=== PATIENT | male | born 1960 | race Caucasian/White ===

== ENCOUNTER 2017-01-31 04:44 | Inpatient (IN) | payer BC ==
--- OUTSIDE RECORDS SUMMARY | 2017-01-31 04:47 | XMS | Continuity of Care Document ---
:1960 Author Organization [facility] Care Team Providers Name Role Phone EDUARDO ROSS Admitting Physician CARROL WALTON Attending Physician Hospital Admission Diagnosis No data in the System Social History Element Description Code Description Smoking Status Code Start Date End Date System Smoking Status [id number] Never smoker SNOMED-CT Problems Code Code System Problem Name Start Date End Date Status oblique femur fracture 01/14/2017 Active oblique femur fracture 01/14/2017 Active 01192819 SNOMED-CT Hypertensive disorder Unknown Active Medications SNOMED CT Description [id number] Drug Treatment Unknown Allergies Code Code System Allergy Type Reaction Severity Start Date End Date Status Substance RXNorm No Known Drug Drug allergy Unknown 01/14/2017 Active Allergies RXNorm No Known Drug Drug allergy Unknown 01/14/2017 Active Allergies Results Laboratory Results Order: BMP BASIC METABOLIC PANEL LOINC Test Result Flag Range Unit Date 1Glucose 106 75-110 mg/dl 01/14/2017 17:55 1BUN 34 H 6.0-17.0 mg/dl 01/14/2017 17:55 1Creatinine 1.6 H 0.4-1.2 mg/dl 01/14/2017 17:55 1Sodium 133 L 137-145 mmol/l 01/14/2017 17:55 1Potassium 4.5 3.5-5.0 mmol/l 01/14/2017 17:55 1Chloride 98 98-107 mmol/l 01/14/2017 17:55 1CO2 25 22-30 mmol/l 01/14/2017 17:55 1Calcium 9.3 8.4-10.2 mg/dl 01/14/2017 17:55 1EGFR if 57 mL/min/1.73m^2 01/14/2017 17:55 1EGFR if Non- 47 mL/min/1.73m^2 01/14/2017 17:55 [place] Note: Estimated Glomerular Filtration Rate (eGFR) Reference Intervals Decision Points for 18 years and older and average body mass: >=60 Does not exclude kidney disease. 30 - 59 Suggests moderate chronic kidney disease and indicates the need for further investigation including assessment of proteinuria and cardiovascular factors. < 30 Usually indicates a need for referral for assessment and management of chronic kidney failure. Performing Lab Footnotes:[address] [place] [address] - [id number] - [address] - MD: DIRECTOR KRYSTAL HURTADO___ ___ Order: CBC PLATELET AUTO DIFF LOINC Test Result Flag Range Unit Date 89787-5 1Leukocytes^^corrected for 9.66 4.80-10.80 10^3/ul 01/14/2017 17 :55 nucleated erythrocytes:NCnc:Pt:Bld:Qn:A utomated count 789-8 1Erythrocytes:NCnc:Pt:Bld:Qn: 3.25 L 4.70-6.10 10^6/ul 01/14/2017 17:55 Automated count 718-7 1Hemoglobin:MCnc:Pt:Bld:Qn 10 L 14.0-18.0 gm/dl 01/14/2017 17:55 4544-3 1Hematocrit:VFr:Pt:Bld:Qn:Aut 31 L 42.0-50.0 % 01/14/2017 17:55 omated count 787-2 1Erythrocyte mean corpuscular 95.4 H 80.0-94.0 fL 01/14/2017 17:55 volume:EntVol:Pt:RBC:Qn:Autom ated count 785-6 1Erythrocyte mean corpuscular 30.8 27.0-31.0 pg 01/14/2017 17:55 hemoglobin:EntMass:Pt:RBC:Qn: Automated count 786-4 1Erythrocyte mean corpuscular 32.3 L 33.0-37.0 gm/dl 01/14/2017 17: 55 hemoglobin concentration:MCnc:Pt:RBC:Qn: Automated count 788-0 1Erythrocyte distribution 14 11.5-14.5 % 01/14/2017 17:55 width:Ratio:Pt:RBC:Qn:Automat ed count 777-3 1Platelets:NCnc:Pt:Bld:Qn:Aut 344 130-400 10^3/ul 01/14/2017 17:55 omated count 17120-3 1Platelet mean 9.3 A 7.4-10.4 fL 01/14/2017 17:55 volume:EntVol:Pt:Bld:Qn:Autom ated count 770-8 1Neutrophils/100 70.9 42.0-75.0 % 01/14/2017 17:55 leukocytes:NFr:Pt:Bld:Qn:Auto mated count 736-9 1Lymphocytes/100 13.3 13.0-42.0 % 01/14/2017 17:55 leukocytes:NFr:Pt:Bld:Qn:Auto mated count 5905-5 1Monocytes/100 10.8 4.0-14.0 % 01/14/2017 17:55 leukocytes:NFr:Pt:Bld:Qn:Auto mated count 713-8 1Eosinophils/100 2.7 1.0-3.0 % 01/14/2017 17:55 leukocytes:NFr:Pt:Bld:Qn:Auto mated count 706-2 1Basophils/100 0.7 L 1.0-3.0 % 01/14/2017 17:55 leukocytes:NFr:Pt:Bld:Qn:Auto mated count 1IG% 1.6 H 0.0-0.4 % 01/14/2017 17:55 Performing Lab Footnotes:[address] [place] [address] [id number] - [facility] [address] [place] [address] BLAISE Christine MD: DIRECTOR KRYSTAL HURTADO___ ___ Order: PROTIME PT INR LOINC Test Result Flag Range Unit Date 1Protime 10.6 9.0-11.8 seconds 01/14/2017 17:55 6301-6 1Coagulation tissue factor 1 0.9-1.1 01/14/2017 17:55 induced.INR:RelTime:Pt:PPP:Qn:Co ag Note: INR results are intended ONLY to monitor Oral Anticoagulant therapy in stablized patients. The INR Therapeutic Range is 2.0 - 3.0 Patients with a mechanical heart, the INR Range is 2.5 - 3.5 Performing Lab Footnotes:[address] [place], [place] [id number] [place] [address] BLAISE Christine MD: DIRECTOR KRYSTAL HURTADO___ ___ Order: PTT PARTIAL THROMBOPLASTIN TM LOINC Test Result Flag Range Unit Date 1aPTT 26.6 25.3-35.7 seconds 01/14/2017 17:55 Performing Lab Footnotes:[address] [place], [place] [id number] - [address] [place] [address] BLAISE Christine MD: DIRECTOR KRYSTAL HURTADO___ ___ Radiology Results Order: [id number] XR HIP 2-3 VIEWs W AP PELVISExam Completion Date:01/14/2017 14:51Procedure: XR HIP 2-3 VIEWs W AP PELVIS Exam Date: January 14, 2017 Ordering Provider: CARROL Aranainical Indication: TRAUMA: Multiple Traumatic InjuriesComparison: NoneFindings: Right hip arthroplasty that is intact.Oblique fracture of the right femur originating at the femoral anchor componentand extending superiorly.Diffuse soft tissue swelling.Impression: Oblique fractureof the right femur originating at the femoralanchor component and extending superiorly.This final report was electronically signed by Dr Phu Rodriguez MD 2016 3:55 PMDictated By: PATTIE RODRIGUEZate: 01/14/2017 16:01 Vital Signs Vitals Value Date Body Temperature 98 F 01/14/2017 Respiratory Rate 18 01/14/2017 O2% BldC Oximetry 100 01/14/2017 BP Systolic 121 mmHg 01/14/2017 BP Diastolic 66 mmHg 01/14/2017 Height 72 in 01/14/2017 Weight Measured 220 lbs 01/14/2017 BSA (Body Surface Area) 2.92874 01/14/2017 BMI (Body Mass Index) 30.1 01/14/2017 Plan of Care No data in the system Procedures Code Code System Procedure Name Target Site Date of Procedure XR HIP 2-3 VIEWs W AP PELVIS 01/14/2017 16:01 RIGHT HIP SX 12/2016 LOW BACK SX Unknown RIGHT WRIST SX Unknown Encounters No data in the system Immunizations No data in the system Functional Status Code Functional/Cognitive Condition Code System Date Status 782935167 Orientated SNOMED-CT 01/14/2017 Active 922642872 Orientated SNOMED-CT 01/14/2017 Active 603383598 Orientated SNOMED-CT 01/14/2017 Active 435906874 Orientated SNOMED-CT 01/14/2017 Active 815684811 Mentally alert SNOMED-CT 01/14/2017 Active 705644046 Ability to perform activities of everyday SNOMED-CT 01/14/2017 Active life (observable entity) 142931739 Oriented to person SNOMED-CT 01/14/2017 Active Hospital Discharge Instructions No data in the system
--- OUTSIDE RECORDS SUMMARY | 2017-01-31 04:47 | XMS | Continuity of Care Document ---
:1960 Author Organization [facility] Care Team Providers Name Role Phone EDUARDO ROSS Admitting Physician CARROL WALTON Attending Physician Hospital Admission Diagnosis Code Admission Diagnosis Date [id number] Injury of hip region Social History Element Description Code Description Smoking Status Code Start Date End Date System Smoking Status 049631796 Never smoker SNOMED-CT Problems Code Code System Problem Name Start Date End Date Status oblique femur fracture 01/14/2017 Active oblique femur fracture 01/14/2017 Active 13554146 SNOMED-CT Hypertensive disorder Unknown Active Medications SNOMED CT Description 145471977 Drug Treatment Unknown Allergies Code Code System [...] 1EGFR if Non- 47 mL/min/1.73m^2 01/14/2017 17:55 Taiwanese Note: Estimated Glomerular Filtration Rate (eGFR) Reference [...] management of chronic kidney failure. Performing Lab Footnotes:[address] [place] [address] - [id number] - [address] - MD: DIRECTOR KRYSTAL HURTADO___ ___ Order: CBC PLATELET AUTO DIFF LOINC Test Result Flag Range Unit Date 82658-7 1Leukocytes^^corrected for 9.66 4.80-10.80 10^3/ul 01/14/2017 17 [...] 344 130-400 10^3/ul 01/14/2017 17:55 omated count 17149-3 1Platelet mean 9.3 A 7.4-10.4 fL 01/14/2017 [...] H 0.0-0.4 % 01/14/2017 17:55 Performing Lab Footnotes:[address] [place] [address] - [id number] - [facility] [address] - : DIRECTOR KRYSTAL HURTADO___ ___ Order: PROTIME PT [...] Range is 2.5 - 3.5 Performing Lab Footnotes:[address] [place], [place] [id number] [place] [address] BLAISE Christine MD: DIRECTOR KRYSTAL HURTADO___ ___ Order: PTT PARTIAL THROMBOPLASTIN TM LOINC Test Result Flag Range Unit Date 1aPTT 26.6 25.3-35.7 seconds 01/14/2017 17:55 Performing Lab Footnotes:[address] [place], [place] [id number] [place] [address] BLAISE Christine MD: DIRECTOR KRYSTAL HURTADO___ ___ Radiology Results Order: [id number] XR HIP 2-3 VIEWs W AP PELVISExam [...] 220 lbs 01/14/2017 BSA (Body Surface Area) 2.04541 01/14/2017 BMI (Body Mass Index) 30.1 01/14/2017 Plan of Care No data in the system Procedures Code Code System Procedure Name Target Site Date of Procedure XR HIP 2-3 VIEWs W AP PELVIS 01/14/2017 16:01 RIGHT HIP SX 12/2016 LOW BACK SX Unknown RIGHT WRIST SX Unknown Encounters Date Code Diagnosis Status (ICD10) - [id number] DSPL OBL FX SHFT RT FEM INIT GOLD FX Active Immunizations No data in the system Functional Status Code Functional/Cognitive Condition Code System Date Status 696750949 Orientated SNOMED-CT 01/14/2017 Active 925791736 Orientated SNOMED-CT 01/14/2017 Active 461739370 Orientated SNOMED-CT 01/14/2017 Active 730257736 Orientated SNOMED-CT 01/14/2017 Active 453447877 Mentally alert SNOMED-CT 01/14/2017 Active 620584535 Ability to perform activities of everyday SNOMED-CT 01/14/2017 Active life (observable entity) 825667409 Oriented to person SNOMED-CT 01/14/2017 Active Hospital Discharge Instructions No data in the system
[2017-01-31 05:57] LABS: #Lymphocytes 0.5 thou/uL (1.20-3.40); #Monocytes 0.8 thou/uL (0.11-0.59); #Neutrophils 5.2 thou/uL (1.40-6.50); %Basophils 0.6 % (0.0-1.0); %Eosinophils 0.6 % (0.0-10.0); %Monocytes 11.4 % (0.0-10.0); Hematocrit 23.1 % (42.0-52.0); Mean Platelet Volume 6.5 fL (7.4-10.4); Red Blood Cell (RBC) Count 2.36 mill/uL (4.70-6.10); White Blood Cell (WBC) Count 6.6 thou/uL (4.8-10.8)
[2017-01-31 06:02] LABS: PTT 38.3 SEC (22.9-36.1); Prothrombin Time 17.3 SEC (12.0-14.7)
[2017-01-31] MEDS ORDERED: Naloxone HCl 0.4 mg/ml Vial ONE (06:12)
[2017-01-31 06:16] LABS: Lactic Acid - Sepsis 2.8 mmol/L (0.5-2.2)
[2017-01-31 06:24] LABS: ALT (SGPT) 24 U/L (8-55); AST (SGOT) 44 U/L (5-34); Alkaline Phosphatase 344 U/L (40-150); Anion Gap 20 mmol/L (10-20); BUN (Urea Nitrogen) 42 mg/dL (8.4-25.7); Bilirubin, Total 0.4 mg/dL (0.2-1.2); CK (CPK) 702 U/L (30-200); Calc. Creatinine Clearance 0 mL/min (70-130); Calcium 8.4 mg/dL (7.8-10.44); Carbon Dioxide 18 mmol/L (22-29); Chloride 99 mmol/L (98-107); Estimated GFR-MDRD 37; Protein, Total 6.1 g/dL (6.0-8.3)
[2017-01-31 06:25] LABS: Troponin I Less than 0.010 ng/mL (< 0.028)
[2017-01-31 06:55] LABS: Acetaminophen Less than 6.0 mcg/mL (10.0-30.0); Salicylate Less than 8.0 mg/dL (15.0-30.0)
[2017-01-31] MEDS ORDERED: Sodium Bicarb 50 MEQ/50 ML Abboject 8.4% SYRINGE ONE ×2 (06:55→06:57)
[2017-01-31 07:45] LABS: Magnesium 2.3 mg/dL (1.6-2.6); Phosphorus 4.8 mg/dL (2.3-4.7)
--- NOTE | 2017-01-31 08:01 | ULT ---
PRELIMINARY REPORT/[facility]/EMERGENCY AFTER HOURS PROCEDURE: EXAM: US Duplex Bilateral Lower Extremity Veins CLINICAL HISTORY: 57 years old, male; Signs and symptoms; Edema, localized; Lower extremity, bilateral; Patient HX: Ed aure x 5-6 months TECHNIQUE: Real-time ultrasound scan of the veins of the bilateral lower extremities with color Doppler flow, s pectral waveform analysis and compression. COMPARISON: No relevant prior studies available. FINDINGS: Right deep veins: Unremarkable. No DVT in the right common femoral, femoral, proximal deep femoral o r popliteal veins. The veins demonstrate normal color flow, are normally compressible, with normal p hasic flow and/or augmentation response. Right superficial veins: Unremarkable. No thrombus in the visualized right great saphenous vein. Left deep veins: Unremarkable. No DVT in the left common femoral, femoral, proximal deep femoral or popliteal veins. The veins demonstrate normal color flow, are normally compressible, with normal pha sic flow and/or augmentation response. Left superficial veins: Unremarkable. No thrombus in the visualized left great saphenous vein. Soft tissues: Soft tissue edema. No popliteal cyst. IMPRESSION: No sonographic evidence for deep venous thrombosis in the lower extremities Thank you for allowing us to participate in the care of your patient. Dictated and Authenticated by: Tam Elmore MD 01/31/2017 6:26 AM Central Time ([place] \T\ [place]) FINAL REPORT VENOUS ULTRASOUND FINDINGS/IMPRESSION: I agree with the above provided preliminary interpretation. No evidence of DVT. POS: [facility]
--- NOTE | 2017-01-31 08:20 | CT ---
CT HEAD NONCONTRAST: History: Altered mental status. FINDINGS: No comparison. There is no evidence of acute intracranial hemorrhage or infarct. Chronic ischemic sm all vessel disease is apparent within the periventricular white matter of each cerebral hemisphere. There is no mass effect or shift of midline structures. Visualized paranasal sinuses remain well aer ated. IMPRESSION: No acute intracranial abnormalities are demonstrated on noncontrast CT head. POS: [facility]
--- NOTE | 2017-01-31 08:21 | RAD ---
CHEST ONE VIEW: History: Altered mental status. Dyspnea. FINDINGS: No comparison. The cardiac silhouette is magnified by projection. Pulmonary vasculature is unremarka ble. Mediastinum is midline. There is no lobar consolidation or evidence of pneumothorax. IMPRESSION: No active cardiopulmonary abnormalities are demonstrated. POS: [facility]
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
--- NOTE | 2017-01-31 08:26 | RAD ---
TWO VIEWS RIGHT HIP: Date: 01-31-17 History: Right hip replacement approximately 1 month ago. Patient has had difficulty walking since s urgery and reports constant pain since procedure. FINDINGS: There is a right total hip prosthesis in place. There are cerclage wires about the proximal right fe mur. No hardware complication is seen. There is no fracture or dislocation. There is increased densi ty seen lateral to the right hip which may be related to heterotopic ossification. Partial visualiza tion of post-surgical changes lower lumbar spine. No other findings. IMPRESSION: Post-surgical change related to right total hip prosthesis. No acute osseous abnormality is identifi ed. POS: [facility]
[2017-01-31] MEDS ORDERED: Loratadine 10 MG TAB PO PRN (09:05)
[2017-01-31] MEDS ORDERED: cloNIDine HCl 0.1 MG TAB PO PRN (09:05)
[2017-01-31] MEDS ORDERED: Ondansetron HCl/PF 4 MG/2 ML Vial IVP PRN (09:05)
[2017-01-31] MEDS ORDERED: Famotidine 20 MG TAB PO SCH ×2 (09:05→09:45)
[2017-01-31] MEDS ORDERED: Nitroglycerin 0.4 MG TAB (25 Tab Bottle) PO PRN (09:05)
[2017-01-31] MEDS ORDERED: Acetaminophen 325 MG TAB PO PRN (09:05)
[2017-01-31] MEDS ORDERED: Diabetic Tussin 200 MG/10 ML UDCUP PO PRN (09:05)
[2017-01-31] MEDS ORDERED: Calcium Carbonate 500 MG ChewTAB PO PRN (09:05)
[2017-01-31] MEDS ORDERED: Lorazepam 1 MG TAB PO PRN (09:05)
[2017-01-31] MEDS ORDERED: Eucerin (Mineral Oil/Petrolatum,White) 30 gm Jar TOP PRN (09:05)
[2017-01-31] MEDS ORDERED: Ondansetron ODT 4 MG TAB PO PRN (09:05)
[2017-01-31] MEDS ORDERED: Senokot 8.6 MG TAB PO PRN (09:05)
[2017-01-31] MEDS ORDERED: Sodium Bicarbonate 50 MEQ in Dextrose 5 %-0.45 % NaCl 1,000 ML IV SCH ×2 (09:05→17:47)
[2017-01-31 14:56] LABS: Anion Gap 17 mmol/L (10-20); BUN (Urea Nitrogen) 37 mg/dL (8.4-25.7); Calc. Creatinine Clearance 90 mL/min (70-130); Calcium 8.6 mg/dL (7.8-10.44); Carbon Dioxide 22 mmol/L (22-29); Chloride 103 mmol/L (98-107); Estimated GFR-MDRD 49
[2017-01-31 15:03] LABS: Troponin I 0.015 ng/mL (< 0.028)
[2017-01-31] MEDS: HYDROcodone/Acetaminophen 5/325 mg Tablet PO PRN ×3 (16:16→23:38)
[2017-01-31] MEDS: Folic Acid 1 MG TAB PO SCH (16:16)
[2017-01-31] MEDS: cefTRIAXone\\ROCEPHIN 1 GM in Sodium Chloride 0.9% 100 ML IVPB SCH (16:17)
[2017-01-31] MEDS: Metoprolol Tartrate 25 MG TAB PO SCH ×2 (16:17→20:33)
[2017-01-31] MEDS: Multivit, Therapeutic 1 TAB PO SCH (16:17)
--- NOTE | 2017-01-31 17:54 | CON ---
NEPHROLOGY CONSULTATION DATE OF CONSULTATION: 01/31/2017 CONSULTING PHYSICIAN: Dr. Bianchi. REASON FOR CONSULTATION: Acute kidney injury, hyperkalemia. REASON FOR ADMISSION: Altered mental status. HISTORY OF PRESENT ILLNESS: A 57-year-old male who was brought to the hospital with altered mentati on, history of chronic alcoholism, hypertension, chronic pain and also on chronic narcotics. The patient is feeling much better this afternoon and was eating his dinner. No fever or chills. N o nausea or vomiting. He wants to go home. He does follow with Dr. Desai at [facility]. PAST MEDICAL HISTORY: Positive for CKD stage 3, chronic alcoholism, hypertension, chronic pain synd [place]mira, renal cyst. PAST SURGICAL HISTORY: Recent hip replacement, avascular necrosis, back surgery, wrist surgery. HOME MEDICATIONS: Eliquis, vitamin D, Lasix 20, gabapentin 300 mg p.o. daily, [place], lisinopril, Ro baxin, Toprol-XL, multivitamins, Senna and Ocuvite. ALLERGIES: No known drug allergies. SOCIAL HISTORY: No smoking, alcohol or illicit drug abuse. FAMILY HISTORY: Positive for hypertension. REVIEW OF SYSTEMS: The following complete review of systems was negative, unless otherwise mentione d in the HPI or below: CONSTITUTIONAL: Weight loss or gain, ability to conduct usual activities. SKIN: Rash, itching. EYES: Double vision, pain. ENT/MOUTH: Nose bleeding, neck stiffness, pain, tenderness. CARDIOVASCULAR: Palpitations, dyspnea on exertion, orthopnea. RESPIRATORY: Shortness of breath, wheezing, cough, hemoptysis, fever or night sweats. GASTROINTESTINAL: Poor appetite, abdominal pain, heartburn, nausea, vomiting, constipation, or diar violetta. GENITOURINARY: Urgency, frequency, dysuria, nocturia. MUSCULOSKELETAL: Pain, swelling. NEUROLOGIC/PSYCHIATRIC: Anxiety, depression. ALLERGY/IMMUNOLOGIC: Skin rash, bleeding tendency. PHYSICAL EXAMINATION: GENERAL: This is a well-built male in no apparent distress. VITAL SIGNS: Temperature 98.6, pulse 105, respiratory rate 18, blood pressure 139/69. HEENT: Atraumatic, normocephalic. Oral mucosa is moist. NECK: Supple, no masses. CARDIOVASCULAR: S1 and S2 heard. Rate and rhythm regular. RESPIRATORY: Clear. GASTROINTESTINAL: Abdomen is soft. MUSCULOSKELETAL: No tenderness, no edema. DERMATOLOGIC: No skin rash. NEUROLOGIC: Alert and awake. PSYCHIATRIC: Mood and affect normal. LABORATORY AND X-RAY FINDINGS: Hemoglobin is 7.3. Potassium is 4.8, BUN is 37, creatinine is 1.7 t o 1.4. Potassium was initially 6.5. ASSESSMENT AND PLAN: 1. Acute kidney injury, much better. Agree with hydration. 2. Acidosis, better with IV fluids. 3. Hyperkalemia. Limit potassium in the diet and hold BIANCA inhibitor. 4. Anemia, rule out any bleed. 5. Edema. We will check urine protein to creatinine ratio. 6. Hypertension, stable. Plan is to check urine protein to creatinine ratio. Continue IV fluids as tolerated and we will fol low. Thank you for the consultation.
[2017-01-31 19:31] LABS: Bilirubin Negative (Negative); Blood, Urine Moderate (Negative); Glucose, Urine (Dipstick) Negative (Negative); Ketone, Urine Trace mg/dL (Negative); Nitrite Negative (Negative); Protein, Urine (Dipstick) Trace mg/dL (Neg-Trace); Urobilinogen 0.2 mg/dL (0.2-1.0)
[2017-01-31 19:33] LABS: Bacteria/HPF None Seen HPF (None Seen); Hyaline Casts/LPF 0-3 HYALINE CAST LPF (0-3 Hyaline); Squamous Epithelial None Seen HPF (0-3); WBC/HPF 0-3 HPF (0-3)
[2017-01-31] MEDS: Doxycycline 100 MG CAP PO SCH (20:33)
[2017-01-31] MEDS: Gabapentin 300 MG CAP PO SCH (20:33)
[2017-01-31] MEDS: Famotidine 20 MG TAB PO SCH (20:34)
[2017-01-31] MEDS: Apixaban 5 MG TAB PO SCH ×2 (20:37→21:00)
[2017-02-01] MEDS: HYDROcodone/Acetaminophen 5/325 mg Tablet PO PRN ×2 (03:29→08:36)
[2017-02-01 05:35] LABS: #Eosinphils 0.3 thou/uL (0.0-0.7); #Lymphocytes 0.8 thou/uL (1.20-3.40); #Monocytes 0.7 thou/uL (0.11-0.59); #Neutrophils 5.2 thou/uL (1.40-6.50); %Basophils 0.2 % (0.0-1.0); %Eosinophils 4.3 % (0.0-10.0); %Lymphocytes 11.7 % (21.0-51.0); Hematocrit 25.6 % (42.0-52.0); Mean Platelet Volume 6.6 fL (7.4-10.4); Red Blood Cell (RBC) Count 2.57 mill/uL (4.70-6.10); White Blood Cell (WBC) Count 7.1 thou/uL (4.8-10.8)
[2017-02-01 05:59] LABS: ALT (SGPT) 41 U/L (8-55); AST (SGOT) 82 U/L (5-34); Alkaline Phosphatase 350 U/L (40-150); Anion Gap 16 mmol/L (10-20); BUN (Urea Nitrogen) 24 mg/dL (8.4-25.7); Bilirubin, Total 0.2 mg/dL (0.2-1.2); Calc. Creatinine Clearance 115 mL/min (70-130); Calcium 8.7 mg/dL (7.8-10.44); Carbon Dioxide 23 mmol/L (22-29); Chloride 105 mmol/L (98-107); Estimated GFR-MDRD 66; Globulin 3.2 g/dL (2.4-3.5); Protein, Total 6.2 g/dL (6.0-8.3)
[2017-02-01] MEDS: Gabapentin 300 MG CAP PO SCH (08:33)
[2017-02-01] MEDS: Doxycycline 100 MG CAP PO SCH (08:33)
[2017-02-01] MEDS: Folic Acid 1 MG TAB PO SCH (08:34)
[2017-02-01] MEDS: Multivit, Therapeutic 1 TAB PO SCH (08:34)
[2017-02-01] MEDS: Famotidine 20 MG TAB PO SCH (08:34)
[2017-02-01] MEDS: Apixaban 5 MG TAB PO SCH (08:34)
[2017-02-01] MEDS: Metoprolol Tartrate 25 MG TAB PO SCH (08:34)
[2017-02-01] MEDS: cefTRIAXone\\ROCEPHIN 1 GM in Sodium Chloride 0.9% 100 ML IVPB SCH (08:35)
[2017-02-01 11:32] VITALS: BP 130/69; TEMP 99.4
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
[2017-02-01] MEDS ORDERED: Famotidine 20 MG TAB PER TUBE SCH (14:30)
[2017-02-01] MEDS ORDERED: Losartan Potassium 25 MG TAB PER TUBE SCH (14:30)
[2017-02-01] MEDS ORDERED: Aspirin 325 MG TAB PER TUBE SCH (14:30)
[2017-02-01] MEDS ORDERED: Metoprolol Tartrate 25 MG TAB PER TUBE SCH (14:30)
--- NOTE | 2017-02-01 20:15 | PRG ---
DATE OF SERVICE: 02/01/2017 SUBJECTIVE: Patient was seen and examined at bedside and overnight events noted. Patient denies an y shortness of breath or chest pain or palpitation. No history of nausea or vomiting or diarrhea or fever or chills or cramps. OBJECTIVE: GENERAL: This is a well-built male, in no apparent distress. VITAL SIGNS: Temperature 99.4, pulse 103, respiratory rate 16, blood pressure 130/69. HEENT: Atraumatic, normocephalic, oral mucosa is moist. NECK: Supple. CARDIOVASCULAR: S1, S2 heard, rate and rhythm regular. RESPIRATORY: Clear to auscultation. GASTROINTESTINAL: Abdomen is soft. MUSCULOSKELETAL: No tenderness, no edema. DERMATOLOGIC: No skin rash. NEUROLOGIC: Alert and awake and oriented x3, no focal neurologic deficits. Moving all the extremit ies. PSYCHIATRIC: Mood and affect normal. LABORATORY DATA: Potassium 4.2, BUN is 24, creatinine is 1.1. ASSESSMENT AND PLAN: 1. Acute kidney injury, much better. Agree with IV hydration. 2. Hyperkalemia, better. Limit potassium. 3. Edema. 4. Proteinuria, minimal. 5. Hypertension, stable. Okay to discharge home. Follow up in the clinic in 1-2 weeks.
== END 2017-02-01 14:36 | disposition home or self-care (01) | DRG 896 ==
LOC: ERS 04:44 → 2SE 07:46
PROVIDERS: ADMIT Internal Medicine; ATTEND Internal Medicine
DX: F10.251 Alcohol dependence with alcohol-induced psychotic disorder with hallucinations (principal); G92 Toxic encephalopathy; E87.2 Acidosis; N17.9 Acute kidney failure, unspecified; N18.3 Chronic kidney disease, stage 3 (moderate); E44.1 Mild protein-calorie malnutrition; D62 Acute posthemorrhagic anemia; E87.5 Hyperkalemia; E87.1 Hypo-osmolality and hyponatremia; I12.9 Hypertensive chronic kidney disease with stage 1 through stage 4 chronic kidney disease, or unspecified chronic kidney disease; G89.4 Chronic pain syndrome; Z79.891 Long term (current) use of opiate analgesic; Z96.641 Presence of right artificial hip joint; Z79.01 Long term (current) use of anticoagulants; Z87.891 Personal history of nicotine dependence; Y90.0 Blood alcohol level of less than 20 mg/100 ml; Z68.34 Body mass index [BMI] 34.0-34.9, adult; D63.1 Anemia in chronic kidney disease; T39.1X5A Adverse effect of 4-Aminophenol derivatives, initial encounter; Y92.019 Unspecified place in single-family (private) house as the place of occurrence of the external cause
CPT/HCPCS: 36415; 70450; 71010; 80053; 80307; 81001; 82553; 82570; 82607; 82746; 83605; 83690; 83735; 83880; 84100; 84156; 84443; 84484; 85025; 85610; 85730; 86038; 86140; 86850; 86900; 86901; 87040; 87086; 93005; 93306; 93970; 94760; 96361; 96374; 96375; G8978-GP-CK; G8979-GP-CI; G8987-GO-CL; G8988-GO-CJ; J0696; J2310; J7042; J7050

== ENCOUNTER → 2017-04-27 | Day surgery (SDC) | payer OTHER ==
[2017-04-26 10:45] VITALS: BMI 29.1
[~2017-04-27] MED LIST: FLU VACC QS2017-18 36 mo. & older 0.5 ML SYRINGE IM ONE; Iopamidol-M 200 41% 20 ML VIAL ONE
--- NOTE | 2017-04-27 09:18 | RAD ---
LUMBAR MYELOGRAM: INDICATIONS: Radiculopathy. TECHNIQUE: Informed consent was obtained. Pre-procedure acoustic engineer images were performed for guiding purposes. The patient was placed prone on the fluoroscopic table. The site overlying the left L2-L3 interlaminar s pace was marked. The site was prepped and draped in the usual sterile fashion. Buffered 1% Lidocain e as administered to the overlying subcutaneous tissues. Under fluoroscopic guidance, a 22 gauge spi nal needle was guided down into the thecal sac. There was spontaneous return of normal appearing CSF . Following this, 12 mL of Isovue 200 in solution was administered. There was visualization of the nerve roots within the thecal sac, with opacification of the intrathecal space. The inner stylet was placed and the needle was removed. The site was then cleansed and bandaged. The patient tolerated the procedure without difficulty. Total fluoroscopic time was 0.5 minutes. Total exposure was 618.4 mGy per m2. FINDINGS: The pre-procedure acoustic engineer images demonstrate five lumbar type vertebrae. There are interspinous spacin g devices seen at L3-L4 and at L4-L5. There is multilevel disk degenerative disease. There is multi level facet osteoarthritic change. IMPRESSION: Successful lumbar myelogram. POS: JOYCE
--- NOTE | 2017-04-27 09:54 | CT ---
CT LUMBAR MYELOGRAM: INDICATIONS History of lumbar radiculopathy. TECHNIQUE: Multiple CT images were obtained of the lumbar spine following the intrathecal administration of Isov ue 200 in solution. Please see the lumbar myelogram for details concerning the injection technique. FINDINGS: The majority of the contrast is intrathecal. Portions of the contrast appear dispersed along the per iphery of the thecal sac, likely within an epidural location. There is good opacification of the the rajinder sac. There is post surgical change, consistent with a left-sided hemilaminotomy at L5-S1. There are inter spinous spacing devices at L3-L4 and at L4-L5. There are mild vascular calcifications involving the abdominal aorta. At the L5-S1 level, There is a broad-based disk bulge. There is mild facet joint hypertrophy. The c onstellation of findings induces mild bilateral neural foraminal narrowing. No appreciable central c anal narrowing is evident. At L4-L5, there is vacuum disk phenomenon within the intervertebral disk space, likely related to raúl e ongoing disk instability. Beam scattered artifact from the patient's interspinous pacing device sl ightly limits detail at this level. There is a broad-based bulge. There is facet hypertrophy at thi s level, inducing at least mild bilateral neural foraminal narrowing. At L3-L4, there is a broad-based disk osteophyte complex with facet hypertrophy and ligamentum flavum hypertrophy inducing at least mild central canal narrowing. The broad-based bulge and facet hypertr ophy induces mild bilateral neural foraminal narrowing. At L2-L3, there is a broad-based bulge with facet hypertrophy and ligamentum flavum hypertrophy induc ing mild central canal narrowing. There is mild bilateral neural foraminal narrowing. At L1-L2, there is no appreciable central canal or neural foraminal narrowing demonstrated. At T12-L1, there is no appreciable central canal or neural foraminal narrowing present. IMPRESSION: 1. Mild to moderate spondylosis of the lumbar spine. Mild bilateral neural foraminal narrowing from L2-L3 to L5-S1. 2. Mild central canal narrowing is seen at L2-L3 and at L3-L4. 3. Postoperative changes of the lumbar spine. POS: JOYCE
[2017-04-27 11:46] VITALS: TEMP 98
== END ==
LOC: RAD 06:39
PROVIDERS: ATTEND Neurological Surgery
PROC: B01B1ZZ Fluoroscopy of Spinal Cord using Low Osmolar Contrast (ICD-10-PCS; principal; 2017-04-27)
DX: M54.16 Radiculopathy, lumbar region (principal); I10 Essential (primary) hypertension; E78.2 Mixed hyperlipidemia; M10.9 Gout, unspecified; Z79.01 Long term (current) use of anticoagulants; Z79.899 Other long term (current) drug therapy; Z88.8 Allergy status to other drugs, medicaments and biological substances; Z98.890 Other specified postprocedural states; Z98.818 Other dental procedure status; Z87.891 Personal history of nicotine dependence; Z85.828 Personal history of other malignant neoplasm of skin
CPT/HCPCS: 62304; 72132

== ENCOUNTER 2020-09-01 18:02 | Inpatient (IN) | payer BC, MEDICARE ==
[~2020-09-01 18:02] MED LIST changes: -FLU VACC QS2017-18 36 mo. & older 0.5 ML SYRINGE IM ONE; +Iopamidol-370 76% 500 ML 1 ML ONE; -Iopamidol-M 200 41% 20 ML VIAL ONE
[2020-09-01] MEDS ORDERED: Sodium Chloride 0.9% 1,000 ML IV SCH ×2 (18:36→19:30)
[2020-09-01] MEDS ORDERED: Magnesium 2 GM/50 ML BAG (IN WATER) ONE (19:13)
[2020-09-01 19:41] LABS: Acetaminophen Less than 6.0 mcg/mL (10.0-30.0); Alcohol Less than 10 mg/dL (Less than 10); CK (CPK) 71 U/L (30-200); Magnesium 1.6 mg/dL (1.6-2.6); Salicylate Less than 8.0 mg/dL (15.0-30.0)
[2020-09-01 19:42] LABS: ALT (SGPT) 23 U/L (8-55); AST (SGOT) 30 U/L (5-34); Albumin 3.2 g/dL (3.4-4.8); Alkaline Phosphatase 122 U/L (40-110); Anion Gap 24 mmol/L (10-20); BUN (Urea Nitrogen) 15 mg/dL (8.4-25.7); Calc. Creatinine Clearance 0 mL/min (70-130); Calcium 9.4 mg/dL (7.8-10.44); Carbon Dioxide 22 mmol/L (23-31); Chloride 95 mmol/L (98-107); Globulin 3.3 g/dL (2.4-3.5); Glucose 108 mg/dL (80-115); Potassium 4.3 mmol/L (3.5-5.1); Protein, Total 6.5 g/dL (5.8-8.1); Sodium 137 mmol/L (136-145)
[2020-09-01] MEDS ORDERED: VANCOMYCIN 2 GRAM/400 ML BAG 2 GM in Premix Bag 1 BAG IVPB SCH (19:42)
[2020-09-01 19:43] LABS: #Monocytes 1.8 thou/uL (0.11-0.59); #Neutrophils 10.9 thou/uL (1.40-6.50); %Basophils 0.1 % (0.0-1.0); %Eosinophils 0.2 % (0.0-10.0); %Lymphocytes 7.4 % (21.0-51.0); %Monocytes 13.1 % (0.0-10.0); %Neutrophils 79.3 % (42.0-75.0); Anisocytosis SLIGHT = 6-15 cells (100X) (0-5/hpf); Hemoglobin 12.2 g/dL (14.0-18.0); MDiff Complete? YES; Macrocytosis MODERATE=16-30 cells (100X) (0-5/hpf); Mean Corpuscular HGB CONC 32.8 g/dL (32.0-36.0); Mean Corpuscular Hemoglobin 38.1 pg (27.0-31.0); Mean Platelet Volume 6.7 fL (7.4-10.4); Platelet Count 296 thou/uL (130-400); Platelet Morphology Comment Appears Adequate; RBC Distribution Width 15.6 % (11.5-14.5); White Blood Cell (WBC) Count 13.8 thou/uL (4.8-10.8)
[2020-09-01] MEDS ORDERED: PHENYLEPHRINE-NS 100 MCG/ML 10 ML SYRINGE ONE (19:44)
[2020-09-01] MEDS ORDERED: Piperacillin/Tazobactam 3.375 GM VIAL ONE (19:59)
[2020-09-01 20:03] LABS: CKMB 1.8 ng/mL (0-6.6)
[2020-09-01 20:04] LABS: Bacteria/HPF None Seen HPF (None Seen); Bilirubin 1+ (Negative); Blood, Urine Negative (Negative); Clarity Clear (Clear); Glucose, Urine (Dipstick) Normal (Negative); Ketone, Urine 60 mg/dL (Negative); Leukocyte Negative Leu/uL (Negative); Nitrite Negative (Negative); Protein, Urine (Dipstick) 30 mg/dL (Neg-Trace); RBC/HPF 0-3 HPF (0-3); Specific Gravity, Urine 1.021 (1.002-1.036); Squamous Epithelial 0-3 HPF (0-3); Urobilinogen 12 mg/dL (Less than 2); WBC/HPF 0-3 HPF (0-3)
[2020-09-01 20:11] LABS: Amphetamine Not Detected (NotDetected); Barbiturates Screen Not Detected (NotDetected); Benzodiazepine Screen Not Detected (NotDetected); Cocaine Metabolite Screen Not Detected (NotDetected); Medtox Reader # READER 4; Methadone Not Detected (NotDetected); Methamphetamine Not Detected (NotDetected); Opiate Screen Not Detected (NotDetected); Oxycodone Screen Not Detected (NotDetected); Phencyclidine (PCP) Not Detected (NotDetected); THC/Cannabinoid Screen Detected (NotDetected); Tricyclic Screen Not Detected (NotDetected)
[2020-09-01 20:12] LABS: Medtox Control Line Valid? VALID (VALID)
[2020-09-01] MEDS ORDERED: Piperacillin/Tazobactam 3.375 GM in Sodium Chloride 0.9% 100 ML IVPB SCH (20:15)
[2020-09-01] MEDS ORDERED: Enoxaparin Sodium 100 MG/ML SYRINGE ONE (21:15)
[2020-09-01] MEDS ORDERED: Bisacodyl 5 MG TAB PO PRN (21:35)
[2020-09-01] MEDS ORDERED: Ondansetron PF 4 MG/2 ML Vial IVP PRN (21:35)
[2020-09-01] MEDS ORDERED: Labetalol HCl 100 MG/20 ML VIAL SLOW IVP PRN (21:42)
[2020-09-01] MEDS ORDERED: hydrALAZINE 20 MG/ML VIAL SLOW IVP PRN (21:42)
[2020-09-01 21:52] LABS: SARS-CoV-2 NAA Rapid Test Not Detected (NotDetected)
[2020-09-01 22:20] LABS: Troponin I 0.145 ng/mL (< 0.028)
[2020-09-01 22:40] LABS: Lactic Acid 2.1 mmol/L (0.5-2.2)
[2020-09-01] MEDS: Dextrose 5%-Lactated Ringers 1,000 ML IV SCH (23:47)
[2020-09-02] MEDS: Multivitamins, Adult 10 ML, Folic Acid 1 MG in Dextrose 5 %-0.45 % NaCl 1,000 ML IV SCH ×2 (00:16→22:21)
[2020-09-02] MEDS: Thiamine HCl 200 MG/2 ML VIAL SLOW IVP SCH ×3 (00:17→22:20)
[2020-09-02 01:22] LABS: Troponin I 0.144 ng/mL (< 0.028)
[2020-09-02] MEDS ORDERED: Acetaminophen 650 MG Suppository ONE (03:36)
[2020-09-02] MEDS: Dextrose 5%-Lactated Ringers 1,000 ML IV SCH ×3 (06:05→21:49)
[2020-09-02] MEDS: Cefepime 1 GM in Sodium Chloride 0.9% 100 ML IVPB SCH ×2 (08:05→21:39)
[2020-09-02] MEDS: Famotidine/PF 20 mg/2ml Vial SLOW IVP SCH ×2 (08:06→21:39)
[2020-09-02] MEDS ORDERED: Enoxaparin Sodium 30 MG/0.3 ML SYRINGE ONE (08:09)
[2020-09-02] MEDS ORDERED: Cefepime 1 GM VIAL ONE (08:09)
[2020-09-02] MEDS ORDERED: Famotidine/PF 20 mg/2ml Vial ONE (08:09)
[2020-09-02 08:21] LABS: Hemoglobin 10.4 g/dL (14.0-18.0); Mean Corpuscular HGB CONC 33.7 g/dL (32.0-36.0); Mean Corpuscular Hemoglobin 39.2 pg (27.0-31.0); Mean Platelet Volume 6.9 fL (7.4-10.4); Platelet Count 262 thou/uL (130-400); RBC Distribution Width 15.4 % (11.5-14.5); Red Blood Cell (RBC) Count 2.66 mill/uL (4.70-6.10); White Blood Cell (WBC) Count 9.6 thou/uL (4.8-10.8)
[2020-09-02 08:32] LABS: Anion Gap 15 mmol/L (10-20); BUN (Urea Nitrogen) 12 mg/dL (8.4-25.7); Calc. Creatinine Clearance 151 mL/min (70-130); Calcium 8.3 mg/dL (7.8-10.44); Carbon Dioxide 23 mmol/L (23-31); Chloride 101 mmol/L (98-107); Glucose 111 mg/dL (80-115); Potassium 3.2 mmol/L (3.5-5.1); Sodium 136 mmol/L (136-145)
[2020-09-02 08:38] LABS: Troponin I 0.158 ng/mL (< 0.028)
[2020-09-02 08:43] LABS: Band 7 % (5-11); Eosinophils 1 % (0-10); Lymphocytes 9 % (21-51); MDiff Complete? YES; Metamyelocyte 1 % (0-0); Monocytes 9 % (0-10); Neutrophil 72 % (42-75); Platelet Morphology Comment Appears Adequate; Polychromasia SLIGHT = 2-3 cells (100X) (0-2/hpf); Reactive Lymphocytes 1 % (0-10)
[2020-09-02] MEDS ORDERED: Enoxaparin Sodium 30 MG/0.3 ML SYRINGE SC SCH (09:00)
[2020-09-02] MEDS ORDERED: Acetaminophen 325 MG TAB ONE (09:58)
[2020-09-02] MEDS: Acetaminophen 325 MG TAB PO PRN (10:00)
[2020-09-02] MEDS ORDERED: Magnesium Sulfate 2 GM in Sodium Chloride 0.9% 100 ML IVPB SCH (11:00)
[2020-09-02] MEDS ORDERED: Potassium Chloride 40 MEQ in Premix Bag 1 BAG IVPB SCH (11:00)
[2020-09-02 11:10] VITALS: BMI 28.5
[2020-09-02] MEDS ORDERED: Magnesium 2 GM/50 ML 2 GM in Premix Bag 1 BAG IVPB SCH (11:15)
[2020-09-02] MEDS: Vit A,C & E/Lutein/Minerals Tablet PO SCH (11:35)
[2020-09-02] MEDS ORDERED: Diazepam 5 MG TAB PO PRN (12:17)
[2020-09-02] MEDS: Magnesium 2 GM/50 ML 2 GM in Premix Bag 1 BAG IVPB SCH ×2 (12:27→18:35)
[2020-09-02] MEDS ORDERED: Diazepam 5 MG TAB PO SCH (12:30)
[2020-09-02] MEDS ORDERED: Thiamine HCl 200 MG/2 ML VIAL IM SCH (12:30)
[2020-09-02] MEDS: VANCOMYCIN 1.75 GM/350 ML BAG 1.75 GM in Premix Bag 1 BAG IVPB SCH ×2 (12:54→22:20)
[2020-09-02] MEDS ORDERED: Midazolam HCl 2 mg/2 ml Vial ONE (14:10)
[2020-09-02] MEDS ORDERED: Fentanyl 100 MCG/2 ML VIAL ONE (14:10)
[2020-09-02] MEDS ORDERED: Glycopyrrolate 0.2 MG/ML 5 ML SYRINGE ONE (14:41)
[2020-09-02] MEDS ORDERED: PROPOFOL 200 MG/20 ML VIAL ONE (14:41)
[2020-09-02] MEDS ORDERED: PHENYLEPHRINE-NS 100 MCG/ML 10 ML SYRINGE ONE (14:41)
[2020-09-02] MEDS ORDERED: Rocuronium Bromide 10 MG/ML (10ML VIAL) ONE (14:41)
[2020-09-02] MEDS ORDERED: Esmolol 100 MG/10 ML VIAL ONE (14:41)
[2020-09-02] MEDS ORDERED: Lidocaine 1% PF 5 ML VIAL ONE (14:41)
[2020-09-02] MEDS ORDERED: Ondansetron PF 4 MG/2 ML Vial ONE (14:41)
[2020-09-03] MEDS: Acetaminophen 325 MG TAB PO PRN ×2 (01:35→09:37)
[2020-09-03] MEDS: Diazepam 5 MG TAB PO PRN ×3 (04:48→21:26)
[2020-09-03] MEDS: Dextrose 5%-Lactated Ringers 1,000 ML IV SCH ×3 (05:20→21:26)
[2020-09-03 07:22] LABS: Hemoglobin 10.2 g/dL (14.0-18.0); Mean Corpuscular HGB CONC 32.6 g/dL (32.0-36.0); Mean Corpuscular Hemoglobin 38.5 pg (27.0-31.0); Platelet Count 265 thou/uL (130-400); RBC Distribution Width 15.1 % (11.5-14.5); Red Blood Cell (RBC) Count 2.66 mill/uL (4.70-6.10); White Blood Cell (WBC) Count 7.7 thou/uL (4.8-10.8)
[2020-09-03 07:46] LABS: ALT (SGPT) 15 U/L (8-55); AST (SGOT) 18 U/L (5-34); Albumin 2.5 g/dL (3.4-4.8); Alkaline Phosphatase 89 U/L (40-110); Anion Gap 15 mmol/L (10-20); BUN (Urea Nitrogen) 12 mg/dL (8.4-25.7); Bilirubin, Total 0.5 mg/dL (0.2-1.2); Calc. Creatinine Clearance 134 mL/min (70-130); Calcium 8.3 mg/dL (7.8-10.44); Carbon Dioxide 19 mmol/L (23-31); Chloride 105 mmol/L (98-107); Globulin 2.5 g/dL (2.4-3.5); Glucose 91 mg/dL (80-115); Magnesium 1.8 mg/dL (1.6-2.6); Potassium 3.4 mmol/L (3.5-5.1); Sodium 136 mmol/L (136-145)
[2020-09-03 08:04] LABS: Band 4 % (5-11); Eosinophils 3 % (0-10); Lymphocytes 15 % (21-51); MDiff Complete? YES; Macrocytosis MODERATE=16-30 cells (100X) (0-5/hpf); Monocytes 15 % (0-10); Myelocyte 1 % (0-0); Neutrophil 61 % (42-75); Platelet Morphology Comment Appears Adequate; Polychromasia SLIGHT = 2-3 cells (100X) (0-2/hpf)
[2020-09-03] MEDS: Cefepime 1 GM in Sodium Chloride 0.9% 100 ML IVPB SCH ×2 (09:36→21:25)
[2020-09-03] MEDS: Vit A,C & E/Lutein/Minerals Tablet PO SCH (09:38)
[2020-09-03] MEDS: Magnesium Oxide 400 MG TAB PO SCH (09:38)
[2020-09-03] MEDS: Thiamine 100 MG TAB PO SCH (09:38)
[2020-09-03] MEDS: Famotidine 20 MG TAB PO SCH ×2 (09:38→21:25)
[2020-09-03] MEDS: Folic Acid 1 MG TAB PO SCH (09:38)
[2020-09-03] MEDS: Multivitamin W/ Minerals 1 TAB PO SCH (09:38)
[2020-09-03 09:44] LABS: Vancomycin, Trough 34.6 ug/mL
[2020-09-03] MEDS: VANCOMYCIN 1.75 GM/350 ML BAG 1.75 GM in Premix Bag 1 BAG IVPB SCH (10:38)
[2020-09-04] MEDS: Acetaminophen 325 MG TAB PO PRN (03:20)
[2020-09-04] MEDS: Dextrose 5%-Lactated Ringers 1,000 ML IV SCH ×3 (04:43→21:07)
[2020-09-04] MEDS: Vit A,C & E/Lutein/Minerals Tablet PO SCH (08:55)
[2020-09-04] MEDS: Magnesium Oxide 400 MG TAB PO SCH (08:55)
[2020-09-04] MEDS: Diazepam 5 MG TAB PO PRN (08:55)
[2020-09-04] MEDS: Folic Acid 1 MG TAB PO SCH (08:55)
[2020-09-04] MEDS: Cefepime 1 GM in Sodium Chloride 0.9% 100 ML IVPB SCH ×2 (08:55→21:07)
[2020-09-04] MEDS: Famotidine 20 MG TAB PO SCH ×2 (08:55→21:07)
[2020-09-04] MEDS: Thiamine 100 MG TAB PO SCH (08:55)
[2020-09-04] MEDS: Multivitamin W/ Minerals 1 TAB PO SCH (08:56)
[2020-09-04] MEDS ORDERED: VANCOMYCIN 1.75 GM/350 ML BAG 1.75 GM in Premix Bag 1 BAG IVPB SCH (09:00)
[2020-09-04] MEDS: traMADol HCl 50 MG TAB PO PRN (09:39)
[2020-09-04 11:10] LABS: Vancomycin, Random 16.6 ug/mL (See Comment)
[2020-09-04 11:13] LABS: ALT (SGPT) 21 U/L (8-55); AST (SGOT) 30 U/L (5-34); Albumin 2.4 g/dL (3.4-4.8); Alkaline Phosphatase 128 U/L (40-110); Anion Gap 12 mmol/L (10-20); BUN (Urea Nitrogen) 9 mg/dL (8.4-25.7); Bilirubin, Total 0.3 mg/dL (0.2-1.2); Calc. Creatinine Clearance 141 mL/min (70-130); Calcium 8.9 mg/dL (7.8-10.44); Carbon Dioxide 23 mmol/L (23-31); Chloride 107 mmol/L (98-107); Globulin 2.6 g/dL (2.4-3.5); Glucose 110 mg/dL (80-115); Potassium 4.3 mmol/L (3.5-5.1); Sodium 138 mmol/L (136-145)
[2020-09-04 12:01] LABS: Hemoglobin 9.6 g/dL (14.0-18.0); Lymphocytes 18 % (21-51); MDiff Complete? YES; Macrocytosis MODERATE=16-30 cells (100X) (0-5/hpf); Mean Corpuscular HGB CONC 32.5 g/dL (32.0-36.0); Mean Corpuscular Hemoglobin 38.3 pg (27.0-31.0); Mean Platelet Volume 7.4 fL (7.4-10.4); Monocytes 14 % (0-10); Myelocyte 3 % (0-0); Neutrophil 65 % (42-75); Platelet Count 275 thou/uL (130-400); Platelet Morphology Comment Appears Adequate; White Blood Cell (WBC) Count 6.6 thou/uL (4.8-10.8)
[2020-09-04] MEDS: VANCOMYCIN 2 GRAM/400 ML BAG 2 GM in Premix Bag 1 BAG IVPB SCH (12:25)
[2020-09-04] MEDS ORDERED: hydrALAZINE 20 MG/ML VIAL SLOW IVP SCH (17:00)
[2020-09-05 05:17] LABS: Anion Gap 13 mmol/L (10-20); BUN (Urea Nitrogen) 6 mg/dL (8.4-25.7); Calc. Creatinine Clearance 154 mL/min (70-130); Calcium 8.6 mg/dL (7.8-10.44); Carbon Dioxide 19 mmol/L (23-31); Chloride 110 mmol/L (98-107); Glucose 106 mg/dL (80-115); Potassium 4.1 mmol/L (3.5-5.1); Sodium 138 mmol/L (136-145)
[2020-09-05 06:12] LABS: Hemoglobin 10.2 g/dL (14.0-18.0); Mean Corpuscular HGB CONC 32.3 g/dL (32.0-36.0); Mean Corpuscular Hemoglobin 37.8 pg (27.0-31.0); Mean Platelet Volume 7.7 fL (7.4-10.4); Platelet Count 326 thou/uL (130-400); RBC Distribution Width 15.1 % (11.5-14.5); Red Blood Cell (RBC) Count 2.69 mill/uL (4.70-6.10); White Blood Cell (WBC) Count 8.2 thou/uL (4.8-10.8)
[2020-09-05] MEDS: Dextrose 5%-Lactated Ringers 1,000 ML IV SCH ×3 (06:12→20:29)
[2020-09-05 07:05] LABS: Band 7 % (5-11); Eosinophils 3 % (0-10); Lymphocytes 20 % (21-51); MDiff Complete? YES; Macrocytosis MODERATE=16-30 cells (100X) (0-5/hpf); Monocytes 16 % (0-10); Myelocyte 4 % (0-0); Neutrophil 50 % (42-75)
[2020-09-05 08:44] LABS: Magnesium 1.5 mg/dL (1.6-2.6); Phosphorus 2.9 mg/dL (2.3-4.7)
[2020-09-05] MEDS: Folic Acid 1 MG TAB PO SCH (09:51)
[2020-09-05] MEDS: Famotidine 20 MG TAB PO SCH ×2 (09:51→20:34)
[2020-09-05] MEDS: Thiamine 100 MG TAB PO SCH (09:51)
[2020-09-05] MEDS: Vit A,C & E/Lutein/Minerals Tablet PO SCH (09:51)
[2020-09-05] MEDS: Cefepime 1 GM in Sodium Chloride 0.9% 100 ML IVPB SCH ×2 (09:51→20:29)
[2020-09-05] MEDS: Magnesium Oxide 400 MG TAB PO SCH (09:51)
[2020-09-05] MEDS: Multivitamin W/ Minerals 1 TAB PO SCH (09:52)
[2020-09-05] MEDS: traMADol HCl 50 MG TAB PO PRN (09:57)
[2020-09-05] MEDS ORDERED: Magnesium Sulfate 4 GM in Sodium Chloride 0.9% 250 ML 250 ML IVPB SCH (10:00)
[2020-09-05] MEDS: VANCOMYCIN 2 GRAM/400 ML BAG 2 GM in Premix Bag 1 BAG IVPB SCH (14:20)
[2020-09-05] MEDS ORDERED: Lorazepam 1 MG TAB PO PRN (16:31)
[2020-09-05] MEDS ORDERED: cloNIDine 0.1 MG TAB PO PRN (16:35)
[2020-09-05] MEDS ORDERED: Potassium Chloride 20 MEQ TAB PO SCH (17:00)
[2020-09-05] MEDS: Propranolol HCl 20 MG TAB PO SCH (20:28)
[2020-09-05] MEDS: Heparin 5,000 UNITS/ML VIAL SC SCH (20:35)
[2020-09-06] MEDS: Acetaminophen 325 MG TAB PO PRN (04:51)
[2020-09-06] MEDS: Magnesium Oxide 400 MG TAB PO SCH (08:28)
[2020-09-06] MEDS: Vit A,C & E/Lutein/Minerals Tablet PO SCH (08:28)
[2020-09-06] MEDS: Cyanocobalamin (Vitamin B-12) 1,000 MCG TAB PO SCH (08:28)
[2020-09-06] MEDS: Multivitamin W/ Minerals 1 TAB PO SCH (08:29)
[2020-09-06] MEDS: pyridOXINE 50 MG (B6) TAB PO SCH (08:29)
[2020-09-06] MEDS: Famotidine 20 MG TAB PO SCH ×2 (08:29→20:38)
[2020-09-06] MEDS: Folic Acid 1 MG TAB PO SCH (08:29)
[2020-09-06] MEDS: Propranolol HCl 20 MG TAB PO SCH ×3 (08:29→20:38)
[2020-09-06] MEDS: traMADol HCl 50 MG TAB PO PRN ×3 (08:30→21:00)
[2020-09-06] MEDS: Heparin 5,000 UNITS/ML VIAL SC SCH ×2 (08:31→20:40)
[2020-09-06] MEDS: Thiamine 100 MG TAB PO SCH (08:32)
[2020-09-06] MEDS: Cefepime 1 GM in Sodium Chloride 0.9% 100 ML IVPB SCH ×2 (08:32→20:37)
[2020-09-06 11:18] LABS: Vancomycin, Trough 24.7 ug/mL
[2020-09-06] MEDS: Vancomycin 1.5 GRAM/300 ML BAG 1.5 GM in Premix Bag 1 BAG IVPB SCH (12:56)
[2020-09-06] MEDS: Dextrose 5%-Lactated Ringers 1,000 ML IV SCH (20:37)
[2020-09-06] MEDS: Senokot S 8.6-50 MG TAB PO SCH (20:38)
[2020-09-06] MEDS: Polyethylene Glycol 3350 17 GM Packet PO SCH (20:39)
[2020-09-06] MEDS ORDERED: Polyethylene Glycol 3350 17 GM Packet PO SCH (21:00)
[2020-09-07 07:11] LABS: #Basophils 0.1 thou/uL (0.0-0.2); #Eosinphils 0.6 thou/uL (0.0-0.7); #Lymphocytes 1.5 thou/uL (1.20-3.40); #Monocytes 1.3 thou/uL (0.11-0.59); #Neutrophils 5.7 thou/uL (1.40-6.50); %Basophils 0.6 % (0.0-1.0); %Eosinophils 6.8 % (0.0-10.0); %Lymphocytes 16.8 % (21.0-51.0); %Monocytes 13.7 % (0.0-10.0); Mean Corpuscular HGB CONC 31.5 g/dL (32.0-36.0); Mean Corpuscular Hemoglobin 36.8 pg (27.0-31.0); Mean Platelet Volume 7.9 fL (7.4-10.4); Platelet Count 392 thou/uL (130-400); RBC Distribution Width 15.1 % (11.5-14.5); Red Blood Cell (RBC) Count 2.99 mill/uL (4.70-6.10); White Blood Cell (WBC) Count 9.2 thou/uL (4.8-10.8)
[2020-09-07 08:02] LABS: Anion Gap 13 mmol/L (10-20); BUN (Urea Nitrogen) 9 mg/dL (8.4-25.7); Calc. Creatinine Clearance 150 mL/min (70-130); Calcium 9.2 mg/dL (7.8-10.44); Carbon Dioxide 21 mmol/L (23-31); Chloride 106 mmol/L (98-107); Glucose 86 mg/dL (80-115); Magnesium 1.7 mg/dL (1.6-2.6); Phosphorus 3.5 mg/dL (2.3-4.7); Potassium 4.1 mmol/L (3.5-5.1); Sodium 136 mmol/L (136-145)
[2020-09-07] MEDS ORDERED: Dextrose 5%-Lactated Ringers 1,000 ML IV SCH (08:07)
[2020-09-07] MEDS ORDERED: Magnesium 2 GM/50 ML 2 GM in Premix Bag 1 BAG IVPB SCH (08:30)
[2020-09-07] MEDS: Thiamine 100 MG TAB PO SCH (08:41)
[2020-09-07] MEDS: Senokot S 8.6-50 MG TAB PO SCH ×2 (08:41→22:24)
[2020-09-07] MEDS: Saccharomyces boulardii 250 MG CAP PO SCH (08:41)
[2020-09-07] MEDS: Vit A,C & E/Lutein/Minerals Tablet PO SCH (08:41)
[2020-09-07] MEDS: Famotidine 20 MG TAB PO SCH ×2 (08:41→22:24)
[2020-09-07] MEDS: Folic Acid 1 MG TAB PO SCH (08:41)
[2020-09-07] MEDS: Cyanocobalamin (Vitamin B-12) 1,000 MCG TAB PO SCH (08:41)
[2020-09-07] MEDS: Propranolol HCl 20 MG TAB PO SCH ×3 (08:41→22:24)
[2020-09-07] MEDS: pyridOXINE 50 MG (B6) TAB PO SCH (08:41)
[2020-09-07] MEDS: Multivitamin W/ Minerals 1 TAB PO SCH (08:42)
[2020-09-07] MEDS: Cefepime 1 GM in Sodium Chloride 0.9% 100 ML IVPB SCH ×2 (08:42→22:28)
[2020-09-07] MEDS: Heparin 5,000 UNITS/ML VIAL SC SCH ×2 (08:42→22:25)
[2020-09-07] MEDS: traMADol HCl 50 MG TAB PO PRN ×3 (08:52→22:26)
[2020-09-07] MEDS: Magnesium Oxide 400 MG TAB PO SCH (08:52)
[2020-09-07] MEDS: Vancomycin 1.5 GRAM/300 ML BAG 1.5 GM in Premix Bag 1 BAG IVPB SCH (12:50)
[2020-09-07] MEDS: Polyethylene Glycol 3350 17 GM Packet PO SCH (22:26)
[2020-09-08] MEDS: Cefepime 1 GM in Sodium Chloride 0.9% 100 ML IVPB SCH ×2 (08:22→21:33)
[2020-09-08] MEDS: Senokot S 8.6-50 MG TAB PO SCH ×2 (08:23→21:33)
[2020-09-08] MEDS: Heparin 5,000 UNITS/ML VIAL SC SCH ×2 (08:23→21:34)
[2020-09-08] MEDS: Saccharomyces boulardii 250 MG CAP PO SCH (08:23)
[2020-09-08] MEDS: Cyanocobalamin (Vitamin B-12) 1,000 MCG TAB PO SCH (08:23)
[2020-09-08] MEDS: Folic Acid 1 MG TAB PO SCH (08:24)
[2020-09-08] MEDS: Magnesium Oxide 400 MG TAB PO SCH (08:24)
[2020-09-08] MEDS: Famotidine 20 MG TAB PO SCH ×2 (08:24→21:33)
[2020-09-08] MEDS: pyridOXINE 50 MG (B6) TAB PO SCH (08:24)
[2020-09-08] MEDS: Thiamine 100 MG TAB PO SCH (08:24)
[2020-09-08] MEDS: Propranolol HCl 20 MG TAB PO SCH ×3 (08:24→21:34)
[2020-09-08] MEDS: Vit A,C & E/Lutein/Minerals Tablet PO SCH (08:24)
[2020-09-08] MEDS: Multivitamin W/ Minerals 1 TAB PO SCH (08:25)
[2020-09-08] MEDS ORDERED: Iopamidol-370 76% 500 ML 1 ML ONE (09:04)
[2020-09-08] MEDS: Polyethylene Glycol 3350 17 GM Packet PO SCH (21:34)
[2020-09-09] MEDS: traMADol HCl 50 MG TAB PO PRN ×2 (05:06→12:08)
[2020-09-09 06:27] LABS: Anion Gap 13 mmol/L (10-20); BUN (Urea Nitrogen) 10 mg/dL (8.4-25.7); Calc. Creatinine Clearance 145 mL/min (70-130); Calcium 8.9 mg/dL (7.8-10.44); Carbon Dioxide 24 mmol/L (23-31); Chloride 103 mmol/L (98-107); Glucose 100 mg/dL (80-115); Magnesium 1.7 mg/dL (1.6-2.6); Potassium 4.5 mmol/L (3.5-5.1); Sodium 135 mmol/L (136-145)
[2020-09-09 06:29] LABS: Hemoglobin 10.2 g/dL (14.0-18.0); Mean Corpuscular HGB CONC 32.2 g/dL (32.0-36.0); Mean Platelet Volume 7.8 fL (7.4-10.4); Platelet Count 509 thou/uL (130-400); RBC Distribution Width 15.6 % (11.5-14.5); Red Blood Cell (RBC) Count 2.75 mill/uL (4.70-6.10); White Blood Cell (WBC) Count 8.2 thou/uL (4.8-10.8)
[2020-09-09 06:30] LABS: Band 2 % (5-11); Eosinophils 3 % (0-10); Lymphocytes 22 % (21-51); MDiff Complete? YES; Macrocytosis MODERATE=16-30 cells (100X) (0-5/hpf); Monocytes 14 % (0-10); Neutrophil 59 % (42-75); Platelet Morphology Comment Appears Increased
[2020-09-09] MEDS ORDERED: Magnesium 2 GM/50 ML 2 GM in Premix Bag 1 BAG IVPB SCH (08:15)
[2020-09-09] MEDS: Magnesium Oxide 400 MG TAB PO SCH (08:32)
[2020-09-09] MEDS: Saccharomyces boulardii 250 MG CAP PO SCH (08:32)
[2020-09-09] MEDS: Thiamine 100 MG TAB PO SCH (08:32)
[2020-09-09] MEDS: Senokot S 8.6-50 MG TAB PO SCH ×2 (08:32→20:21)
[2020-09-09] MEDS: Folic Acid 1 MG TAB PO SCH (08:32)
[2020-09-09] MEDS: pyridOXINE 50 MG (B6) TAB PO SCH (08:32)
[2020-09-09] MEDS: Famotidine 20 MG TAB PO SCH ×2 (08:32→20:20)
[2020-09-09] MEDS: Cyanocobalamin (Vitamin B-12) 1,000 MCG TAB PO SCH (08:32)
[2020-09-09] MEDS: Heparin 5,000 UNITS/ML VIAL SC SCH ×2 (08:33→20:21)
[2020-09-09] MEDS: Cefepime 1 GM in Sodium Chloride 0.9% 100 ML IVPB SCH ×2 (08:33→20:20)
[2020-09-09] MEDS: Propranolol HCl 20 MG TAB PO SCH (08:33)
[2020-09-09] MEDS: Multivitamin W/ Minerals 1 TAB PO SCH (08:33)
[2020-09-09] MEDS: Vit A,C & E/Lutein/Minerals Tablet PO SCH (08:38)
[2020-09-09] MEDS: Propranolol 10 MG TAB PO SCH ×2 (14:46→20:21)
[2020-09-09] MEDS: Polyethylene Glycol 3350 17 GM Packet PO SCH (20:21)
[2020-09-10] MEDS: Cefepime 1 GM in Sodium Chloride 0.9% 100 ML IVPB SCH (07:51)
[2020-09-10] MEDS: Famotidine 20 MG TAB PO SCH (07:52)
[2020-09-10] MEDS: Cyanocobalamin (Vitamin B-12) 1,000 MCG TAB PO SCH (07:52)
[2020-09-10] MEDS: Senokot S 8.6-50 MG TAB PO SCH (07:52)
[2020-09-10] MEDS: Propranolol 10 MG TAB PO SCH (07:52)
[2020-09-10] MEDS: Thiamine 100 MG TAB PO SCH (07:52)
[2020-09-10] MEDS: Magnesium Oxide 400 MG TAB PO SCH (07:52)
[2020-09-10] MEDS: pyridOXINE 50 MG (B6) TAB PO SCH (07:53)
[2020-09-10] MEDS: Folic Acid 1 MG TAB PO SCH (07:53)
[2020-09-10] MEDS: Multivitamin W/ Minerals 1 TAB PO SCH (07:53)
[2020-09-10] MEDS: Saccharomyces boulardii 250 MG CAP PO SCH (07:53)
[2020-09-10] MEDS: Heparin 5,000 UNITS/ML VIAL SC SCH (07:53)
[2020-09-10] MEDS: Vit A,C & E/Lutein/Minerals Tablet PO SCH (07:58)
[2020-09-10 14:11] VITALS: BP 133/84; TEMP 98.4
== END 2020-09-10 14:15 | DRG 853 ==
LOC: EEVIPCON 18:02 → ERS 18:02 → ERHOLD 20:37 → IMCU/EMU 09-02 10:31 → T4-A 09-04 14:04
PROVIDERS: ADMIT Internal Medicine; ATTEND Internal Medicine
PROC: HZ2ZZZZ Detoxification Services for Substance Abuse Treatment (ICD-10-PCS; 2020-09-01)
PROC: 0QB10ZZ Excision of Sacrum, Open Approach (ICD-10-PCS; principal; 2020-09-02)
DX: A41.9 Sepsis, unspecified organism (principal); L89.154 Pressure ulcer of sacral region, stage 4; G92 Toxic encephalopathy; I24.8 Other forms of acute ischemic heart disease; E87.2 Acidosis; I96 Gangrene, not elsewhere classified; N17.9 Acute kidney failure, unspecified; E44.0 Moderate protein-calorie malnutrition; G89.29 Other chronic pain; E86.0 Dehydration; M54.9 Dorsalgia, unspecified; R29.6 Repeated falls; F12.10 Cannabis abuse, uncomplicated; N18.30 Chronic kidney disease, stage 3 unspecified; T40.7X1A Poisoning by cannabis (derivatives), accidental (unintentional), initial encounter; M19.90 Unspecified osteoarthritis, unspecified site; F10.20 Alcohol dependence, uncomplicated; R53.81 Other malaise; R65.20 Severe sepsis without septic shock; Z96.611 Presence of right artificial shoulder joint; D53.9 Nutritional anemia, unspecified; Z96.643 Presence of artificial hip joint, bilateral; I08.1 Rheumatic disorders of both mitral and tricuspid valves; I12.9 Hypertensive chronic kidney disease with stage 1 through stage 4 chronic kidney disease, or unspecified chronic kidney disease; Z20.822 Contact with and (suspected) exposure to COVID-19; E87.6 Hypokalemia; E83.42 Hypomagnesemia; Z79.01 Long term (current) use of anticoagulants; Z79.899 Other long term (current) drug therapy; Z98.890 Other specified postprocedural states; Z68.28 Body mass index [BMI] 28.0-28.9, adult; Z71.51 Drug abuse counseling and surveillance of drug abuser; Z71.41 Alcohol abuse counseling and surveillance of alcoholic; Z87.891 Personal history of nicotine dependence
CPT/HCPCS: 36415; 36416; 51701; 70450; 71045; 71275; 72193; 80048; 80053; 80202; 80306; 80307; 81003; 81015; 82140; 82550; 82553; 83605; 83735; 83880; 84100; 84443; 84484; 85025; 85379; 87040; 87070; 87077; 87149; 87186; 87205; 88305; 93005; 93306; 96365; 96366; 96367; 96372; J0692; J1644; J1650; J2250; J2405; J2543; J2704; J3010; J3370; J3411; J3475; J3480; J3490; J7042; J7050; Q9967; S0028; U0002

== ENCOUNTER 2020-09-12 01:42 | Emergency (ER) | payer BC ==
[2020-09-12] MEDS ORDERED: Ketorolac Tromethamine 30 MG/ML VIAL ONE (02:02)
== END 2020-09-12 03:20 ==
LOC: ERS 01:42
DX: S80.11XA Contusion of right lower leg, initial encounter (principal); I10 Essential (primary) hypertension; Z87.891 Personal history of nicotine dependence; Z79.899 Other long term (current) drug therapy; W06.XXXA Fall from bed, initial encounter
CPT/HCPCS: 70450; 72100; 96372; J1885

== ENCOUNTER 2021-08-08 14:38 | Inpatient (IN) | payer BC, MEDICARE ==
[2021-08-08] MEDS ORDERED: Vancomycin HCl 500 MG VIAL ONE (15:06)
[2021-08-08] MEDS ORDERED: Cefepime 2 GM VIAL ONE (15:06)
[2021-08-08 15:31] LABS: Hemoglobin 13.1 g/dL (14.0-18.0); Mean Corpuscular HGB CONC 34.6 g/dL (32.0-36.0); Mean Platelet Volume 6.5 fL (7.4-10.4); Platelet Count 333 thou/uL (130-400); RBC Distribution Width 12.6 % (11.5-14.5); Red Blood Cell (RBC) Count 3.65 mill/uL (4.70-6.10); White Blood Cell (WBC) Count 9.6 thou/uL (4.8-10.8)
[2021-08-08 15:36] LABS: Actual Bicarbonate (HCO3v) 19 mEq/L (22-28); Base Excess -4.2 mEq/L (-2.0 to +3.0); Calcium, Ionized (venous) 1.03 mmol/L (1.16-1.32); Chloride (VBG) 97 mmol/L (98-106); Sodium 132.4 mmol/L (133-146); pH (venous) 7.44 (7.32-7.43)
[2021-08-08 15:54] LABS: Band 2 % (5-11); Eosinophils 2 % (0-10); Lymphocytes 12 % (21-51); MDiff Complete? YES; Macrocytosis SLIGHT = 6-15 cells (100X) (0-5/hpf); Monocytes 19 % (0-10); Neutrophil 63 % (42-75); Platelet Morphology Comment Appears Adequate; Polychromasia SLIGHT = 2-3 cells (100X) (0-2/hpf); Reactive Lymphocytes 2 % (0-10)
[2021-08-08 16:11] LABS: Acetaminophen Less than 10.0 mcg/mL (10.0-30.0); Alcohol Less than 10 mg/dL (Less than 10); CK (CPK) 715 U/L (30-200); Salicylate Less than 8.0 mg/dL (15.0-30.0)
[2021-08-08 16:16] LABS: ALT (SGPT) 35 U/L (8-55); AST (SGOT) 48 U/L (5-34); Albumin 3.3 g/dL (3.4-4.8); Alkaline Phosphatase 101 U/L (40-110); Anion Gap 22 mmol/L (10-20); BUN (Urea Nitrogen) 27 mg/dL (8.4-25.7); Bilirubin, Total 0.5 mg/dL (0.2-1.2); Calc. Creatinine Clearance 0 mL/min (70-130); Calcium 8.5 mg/dL (7.8-10.44); Carbon Dioxide 21 mmol/L (23-31); Chloride 96 mmol/L (98-107); Globulin 2.7 g/dL (2.4-3.5); Glucose 112 mg/dL (80-115); Potassium 3.8 mmol/L (3.5-5.1); Sodium 135 mmol/L (136-145)
[2021-08-08 16:18] LABS: Bacteria/HPF None Seen HPF (None Seen); Bilirubin 1+ (Negative); Blood, Urine 3+ (Negative); Clarity Clear (Clear); Glucose, Urine (Dipstick) Normal (Negative); Ketone, Urine 20 mg/dL (Negative); Leukocyte Negative Leu/uL (Negative); Nitrite Negative (Negative); Protein, Urine (Dipstick) 20 mg/dL (Neg-Trace); RBC/HPF 21-50 HPF (0-3); Specific Gravity, Urine 1.021 (1.002-1.036); Squamous Epithelial 0-3 HPF (0-3); WBC/HPF 0-3 HPF (0-3)
[2021-08-08 16:26] LABS: Amphetamine Not Detected (NotDetected); Barbiturates Screen Not Detected (NotDetected); Benzodiazepine Screen Not Detected (NotDetected); Cocaine Metabolite Screen Not Detected (NotDetected); Methadone Not Detected (NotDetected); Methamphetamine Not Detected (NotDetected); Opiate Screen Not Detected (NotDetected); Oxycodone Screen Not Detected (NotDetected); Phencyclidine (PCP) Not Detected (NotDetected); THC/Cannabinoid Screen Not Detected (NotDetected); Tricyclic Screen Not Detected (NotDetected)
[2021-08-08] MEDS ORDERED: Lorazepam 2 MG/ML VIAL ONE (18:54)
[2021-08-08 21:50] LABS: SARS-CoV-2 NAA Rapid Test Not Detected (NotDetected)
[2021-08-08] MEDS ORDERED: Acetaminophen 650 MG Suppository PR PRN (21:59)
[2021-08-08] MEDS ORDERED: Ondansetron ODT 4 MG TAB PO PRN (21:59)
[2021-08-08] MEDS ORDERED: Ondansetron PF 4 MG/2 ML Vial IVP PRN (21:59)
[2021-08-08] MEDS: Sodium Chloride 0.9% 1,000 ML IV SCH (22:42)
[2021-08-08 23:30] LABS: Anion Gap 19 mmol/L (10-20); BUN (Urea Nitrogen) 23 mg/dL (8.4-25.7); Calc. Creatinine Clearance 128 mL/min (70-130); Calcium 7.8 mg/dL (7.8-10.44); Carbon Dioxide 19 mmol/L (23-31); Chloride 103 mmol/L (98-107); Glucose 108 mg/dL (80-115); Potassium 3.2 mmol/L (3.5-5.1); Sodium 138 mmol/L (136-145)
[2021-08-08] MEDS ORDERED: Metoprolol Tartrate 5 MG/5 ML VIAL IVP PRN (23:56)
[2021-08-09] MEDS ORDERED: Electrolyte Replacement Protocol 1 EACH FS SCH (00:15)
[2021-08-09] MEDS: Potassium Chloride 20 MEQ in Premix Bag 1 BAG IVPB SCH ×2 (02:28→04:38)
[2021-08-09 05:06] LABS: Anion Gap 17 mmol/L (10-20); BUN (Urea Nitrogen) 20 mg/dL (8.4-25.7); Calc. Creatinine Clearance 124 mL/min (70-130); Calcium 7.9 mg/dL (7.8-10.44); Carbon Dioxide 21 mmol/L (23-31); Chloride 104 mmol/L (98-107); Glucose 94 mg/dL (80-115); Magnesium 1.7 mg/dL (1.6-2.6); Potassium 3.4 mmol/L (3.5-5.1); Sodium 139 mmol/L (136-145)
[2021-08-09] MEDS ORDERED: Magnesium 2 GM/50 ML 2 GM in Premix Bag 1 BAG IVPB SCH (05:15)
[2021-08-09] MEDS ORDERED: Potassium Chloride 20 MEQ in Premix Bag 1 BAG IVPB SCH (05:15)
[2021-08-09] MEDS: Enoxaparin Sodium 40 MG/0.4 ML SYRINGE SC SCH (08:08)
[2021-08-09 08:33] LABS: Hemoglobin 9.9 g/dL (14.0-18.0); Mean Corpuscular HGB CONC 32.1 g/dL (32.0-36.0); Mean Corpuscular Hemoglobin 34.5 pg (27.0-31.0); Mean Platelet Volume 6.1 fL (7.4-10.4); Platelet Count 317 thou/uL (130-400); Red Blood Cell (RBC) Count 2.86 mill/uL (4.70-6.10); White Blood Cell (WBC) Count 6.7 thou/uL (4.8-10.8)
[2021-08-09 09:18] LABS: Band 2 % (5-11); Eosinophils 5 % (0-10); Lymphocytes 11 % (21-51); MDiff Complete? YES; Monocytes 21 % (0-10); Neutrophil 60 % (42-75); Ovalocytes SLIGHT = 2-5 cells (100X) (0-1/hpf); Platelet Morphology Comment Appears Adequate
[2021-08-09] MEDS: Sodium Chloride 0.9% 1,000 ML IV SCH ×3 (11:49→21:46)
[2021-08-09] MEDS ORDERED: Lorazepam 2 MG/ML VIAL IM PRN (13:12)
[2021-08-09] MEDS ORDERED: Lorazepam 2 MG/ML VIAL SLOW IVP PRN (13:14)
[2021-08-09] MEDS ORDERED: Multivitamins, Adult 10 ML, Folic Acid 1 MG, Thiamine HCl 100 MG in Dextrose 5 %-0.45 %... IV SCH (13:15)
[2021-08-09 13:57] LABS: ALT (SGPT) 29 U/L (8-55); AST (SGOT) 37 U/L (5-34); Albumin 2.9 g/dL (3.4-4.8); Alkaline Phosphatase 93 U/L (40-110); Anion Gap 16 mmol/L (10-20); BUN (Urea Nitrogen) 17 mg/dL (8.4-25.7); Bilirubin, Direct 0.3 mg/dL (0.1-0.3); Bilirubin, Total 0.5 mg/dL (0.2-1.2); Calc. Creatinine Clearance 117 mL/min (70-130); Calcium 8.1 mg/dL (7.8-10.44); Carbon Dioxide 21 mmol/L (23-31); Chloride 103 mmol/L (98-107); Globulin 2.4 g/dL (2.4-3.5); Glucose 131 mg/dL (80-115); Magnesium 1.9 mg/dL (1.6-2.6); Potassium 3.6 mmol/L (3.5-5.1); Protein, Total 5.3 g/dL (5.8-8.1); Sodium 136 mmol/L (136-145)
[2021-08-09 13:58] LABS: Band 3 % (5-11); Eosinophils 2 % (0-10); Hemoglobin 10.5 g/dL (14.0-18.0); Lymphocytes 7 % (21-51); MDiff Complete? YES; Macrocytosis SLIGHT = 6-15 cells (100X) (0-5/hpf); Mean Corpuscular HGB CONC 32.9 g/dL (32.0-36.0); Mean Corpuscular Hemoglobin 35.3 pg (27.0-31.0); Monocytes 16 % (0-10); Neutrophil 66 % (42-75); Nucleated RBC 1 % (0); Platelet Count 307 thou/uL (130-400); Platelet Morphology Comment Appears Adequate; Polychromasia SLIGHT = 2-3 cells (100X) (0-2/hpf); RBC Distribution Width 12.9 % (11.5-14.5); Reactive Lymphocytes 6 % (0-10); Red Blood Cell (RBC) Count 2.96 mill/uL (4.70-6.10); White Blood Cell (WBC) Count 8.3 thou/uL (4.8-10.8)
[2021-08-09 14:01] LABS: Phosphorus 1.8 mg/dL (2.3-4.7)
[2021-08-09] MEDS: chlordiazePOXIDE HCl 5 MG CAP PO SCH ×2 (17:34→21:44)
[2021-08-09] MEDS: Thiamine HCl 200 MG/2 ML VIAL SLOW IVP SCH (17:34)
[2021-08-09] MEDS: PHOS-NAK 1 PKT PACK PO SCH ×2 (17:35→21:44)
[2021-08-09 19:09] LABS: Syphilis Antibody Nonreactive (Nonreactive); Syphilis Antibody Index 0.31 S/CO (<1.00 Non-Reactive)
[2021-08-09] MEDS: Acetaminophen 325 MG TAB PO PRN (21:43)
[2021-08-10 04:57] LABS: ALT (SGPT) 28 U/L (8-55); AST (SGOT) 31 U/L (5-34); Albumin 2.9 g/dL (3.4-4.8); Alkaline Phosphatase 92 U/L (40-110); Anion Gap 15 mmol/L (10-20); BUN (Urea Nitrogen) 13 mg/dL (8.4-25.7); Bilirubin, Total 0.4 mg/dL (0.2-1.2); Calc. Creatinine Clearance 116 mL/min (70-130); Calcium 8.2 mg/dL (7.8-10.44); Carbon Dioxide 21 mmol/L (23-31); Chloride 105 mmol/L (98-107); Globulin 2.4 g/dL (2.4-3.5); Glucose 106 mg/dL (80-115); Magnesium 1.8 mg/dL (1.6-2.6); Phosphorus 2.9 mg/dL (2.3-4.7); Potassium 3.4 mmol/L (3.5-5.1); Protein, Total 5.3 g/dL (5.8-8.1); Sodium 138 mmol/L (136-145)
[2021-08-10] MEDS ORDERED: Magnesium 2 GM/50 ML 2 GM in Premix Bag 1 BAG IVPB SCH (05:30)
[2021-08-10] MEDS: Potassium Chloride 20 MEQ in Premix Bag 1 BAG IVPB SCH ×2 (05:43→09:24)
[2021-08-10] MEDS: Enoxaparin Sodium 40 MG/0.4 ML SYRINGE SC SCH (09:24)
[2021-08-10] MEDS: chlordiazePOXIDE HCl 5 MG CAP PO SCH ×3 (09:24→21:50)
[2021-08-10] MEDS: Multivit, Therapeutic 1 TAB PO SCH (09:25)
[2021-08-10] MEDS: Folic Acid 1 MG TAB PO SCH (09:25)
[2021-08-10] MEDS: Acetaminophen 325 MG TAB PO PRN (10:34)
[2021-08-10] MEDS: Multivitamins, Adult 10 ML, Folic Acid 1 MG, Thiamine HCl 100 MG in Dextrose 5 %-0.45 %... IV SCH (10:53)
[2021-08-10] MEDS: Thiamine HCl 200 MG/2 ML VIAL SLOW IVP SCH (15:55)
[2021-08-10] MEDS: Sodium Chloride 0.9% 1,000 ML IV SCH ×2 (15:56→21:51)
[2021-08-10] MEDS: traMADol HCl 50 MG TAB PO PRN (21:52)
[2021-08-11] MEDS: Sodium Chloride 0.9% 1,000 ML IV SCH ×2 (05:37→21:22)
[2021-08-11] MEDS: traMADol HCl 50 MG TAB PO PRN ×2 (07:38→15:46)
[2021-08-11] MEDS: Folic Acid 1 MG TAB PO SCH (09:36)
[2021-08-11] MEDS: chlordiazePOXIDE HCl 5 MG CAP PO SCH ×3 (09:36→21:18)
[2021-08-11] MEDS: Enoxaparin Sodium 40 MG/0.4 ML SYRINGE SC SCH (09:36)
[2021-08-11] MEDS: Multivitamins, Adult 10 ML, Folic Acid 1 MG, Thiamine HCl 100 MG in Dextrose 5 %-0.45 %... IV SCH (09:36)
[2021-08-11] MEDS: Multivit, Therapeutic 1 TAB PO SCH (09:36)
[2021-08-11] MEDS: Thiamine HCl 200 MG/2 ML VIAL SLOW IVP SCH (15:10)
[2021-08-12] MEDS: Sodium Chloride 0.9% 1,000 ML IV SCH ×2 (08:25→15:29)
[2021-08-12] MEDS: Folic Acid 1 MG TAB PO SCH (08:51)
[2021-08-12] MEDS: traMADol HCl 50 MG TAB PO PRN (08:51)
[2021-08-12] MEDS: chlordiazePOXIDE HCl 5 MG CAP PO SCH ×2 (08:51→15:29)
[2021-08-12] MEDS: Multivit, Therapeutic 1 TAB PO SCH (08:51)
[2021-08-12] MEDS: Enoxaparin Sodium 40 MG/0.4 ML SYRINGE SC SCH (08:51)
[2021-08-12] MEDS ORDERED: Thiamine 100 MG TAB PO SCH (09:00)
[2021-08-12] MEDS: Multivitamins, Adult 10 ML, Folic Acid 1 MG, Thiamine HCl 100 MG in Dextrose 5 %-0.45 %... IV SCH (09:59)
[2021-08-12 10:12] VITALS: TEMP 98.9
[2021-08-12 14:44] VITALS: BMI 29.8
[2021-08-12 16:10] VITALS: BP 165/83
== END 2021-08-12 17:47 | DRG 897 ==
LOC: ERS 14:38 → 2NO 18:51
PROVIDERS: ADMIT Family Medicine; ATTEND Internal Medicine
DX: F10.239 Alcohol dependence with withdrawal, unspecified (principal); G93.40 Encephalopathy, unspecified; M62.82 Rhabdomyolysis; I10 Essential (primary) hypertension; Z96.643 Presence of artificial hip joint, bilateral; W19.XXXA Unspecified fall, initial encounter; E86.0 Dehydration; E83.39 Other disorders of phosphorus metabolism; G62.9 Polyneuropathy, unspecified; E53.8 Deficiency of other specified B group vitamins; Z98.890 Other specified postprocedural states; Z87.891 Personal history of nicotine dependence; Z79.899 Other long term (current) drug therapy; Y92.9 Unspecified place or not applicable
CPT/HCPCS: 36415; 36416; 51702; 70450; 70551; 71045; 80048; 80053; 80306; 80307; 81003; 81015; 82248; 82550; 82607; 82746; 82805; 83605; 83735; 84100; 84443; 84484; 85025; 86780; 87040; 87086; 93005; 93306; 96365; 96375; J0692; J1650; J2060; J3370; J3411; J3475; J3480; J7042; J7050; U0002